=== PATIENT | female | born 2000 | race Asian ===

== ENCOUNTER → 2018-07-11 | Outpatient (CLI) | payer BC | END | disposition home or self-care (01) | LOC: US 08:30 | PROVIDERS: ATTEND Family Medicine | DX: R22.9 Localized swelling, mass and lump, unspecified (principal) | CPT/HCPCS: 76881 ==

== ENCOUNTER → 2018-08-15 | Outpatient (CLI) | payer BC | END | disposition home or self-care (01) | LOC: US 07:47 | PROVIDERS: ATTEND Family Medicine | DX: N63.22 Unspecified lump in the left breast, upper inner quadrant (principal) | CPT/HCPCS: 76642 ==

== ENCOUNTER → 2018-08-29 | Day surgery (SDC) | payer BC ==
[~2018-08-29] MED LIST: LIDOCAINE HCL/EPINEPHRINE 1%-EPI 1:100,000 20 ML VIAL ONE; SODIUM BICARBONATE 4% (2.4MEQ) 5ML VIAL IV ONE
== END | disposition home or self-care (01) ==
LOC: RAD 09:17
PROVIDERS: ATTEND Family Medicine
DX: D24.2 Benign neoplasm of left breast (principal); Z79.899 Other long term (current) drug therapy; D14.0 Benign neoplasm of middle ear, nasal cavity and accessory sinuses
CPT/HCPCS: 19083; 88305; J3490

== ENCOUNTER → 2019-06-22 | Outpatient (CLI) | payer BC | END | disposition home or self-care (01) | LOC: US 07:25 | PROVIDERS: ATTEND Family Medicine | DX: N60.02 Solitary cyst of left breast (principal) | CPT/HCPCS: 76641 ==

== ENCOUNTER → 2020-05-12 | Outpatient (CLI) | payer BC ==
[2020-05-12 12:04] LABS: BASOPHILS % 0.5 % (0.0-2.0); HEMATOCRIT. 39.8 % (36.0-48.0); HEMOGLOBIN. 13.7 g/dL (12.0-16.0); LYMPHOCYTES % 25.5 % (20.0-50.0); MEAN CORPUSCULAR HEMOGLOBIN 30.6 pg (28.0-32.0); MEAN CORPUSCULAR VOLUME 88.6 fL (81.0-99.0); MEAN PLATELET VOLUME 7.5 fl (7.4-10.4); MONOCYTES % 5.8 % (2.0-8.0); NEUTROPHILS % 67.2 % (40.0-76.0); PLATELET 288 x1000/uL (130-400); RED CELL DISTRIBUTION WIDTH 13.1 % (11.6-14.6)
[2020-05-12 12:13] LABS: CHLORIDE 110 mEq/L (98-107)
[2020-05-12 12:22] LABS: T4 FREE 1.06 ng/dL (0.76-1.46)
[2020-05-12 12:30] LABS: CLARITY URINE CLOUDY (CLEAR); COLOR URINE YELLOW (YELLOW); KETONES URINE TRACE (NEGATIVE); LEUKOCYTE ESTERASE URINE TRACE (NEGATIVE); NITRITE URINE NEGATIVE (NEGATIVE); OCCULT BLOOD URINE 2+ (NEGATIVE); PH URINE 5.5 (4.5-8.0); PROTEIN URINE NEGATIVE (NEGATIVE); SPECIFIC GRAVITY URINE 1.027 (1.005-1.030)
[2020-05-12 13:00] LABS: FOLIC ACID (FOLATE) SERUM 18.4 ng/mL (>5.38)
== END | disposition home or self-care (01) ==
LOC: LAB 11:08
PROVIDERS: ATTEND Family Medicine
DX: Z13.29 Encounter for screening for other suspected endocrine disorder (principal); R53.83 Other fatigue
CPT/HCPCS: 36415; 80053; 81003; 82306; 82607; 82746; 83036; 84439; 84443; 84481; 85025

== ENCOUNTER → 2020-05-26 | Outpatient (CLI) | payer BC | END | disposition home or self-care (01) | LOC: LAB 06:39 | PROVIDERS: ATTEND Family Medicine | DX: E78.5 Hyperlipidemia, unspecified (principal) | CPT/HCPCS: 36415; 80061 ==

== ENCOUNTER → 2023-10-01 | Outpatient (CLI) | payer BC ==
[2023-10-01 11:42] LABS: BASOPHILS % 0.4 % (0.0-2.0); EOSINOPHILS % 1.1 % (0.0-5.0); HEMATOCRIT. 43.2 % (36.0-48.0); HEMOGLOBIN. 14.4 g/dL (12.0-16.0); LYMPHOCYTES % 22.2 % (20.0-50.0); MEAN CORPUSCULAR HEMOGLOBIN 28.8 pg (28.0-32.0); MEAN CORPUSCULAR HGB CONC 33.2 g/dL (31.0-37.0); MEAN CORPUSCULAR VOLUME 86.6 fL (81.0-99.0); MEAN PLATELET VOLUME 7.1 fl (7.4-10.4); MONOCYTES % 4.3 % (2.0-8.0); PLATELET 294 x1000/uL (130-400); RED BLOOD CELL COUNT 4.99 mill/uL (4.2-5.4); RED CELL DISTRIBUTION WIDTH 13.4 % (11.6-14.6)
[2023-10-01 12:50] LABS: ALANINE AMINOTRANSFERASE 10 IU/L (10-49); ALBUMIN 4.2 g/dL (3.2-4.8); ASPARTATE AMINOTRANSFERASE 17 IU/L (<34); BILIRUBIN TOTAL 0.4 mg/dL (0.1-1.0); CALCIUM 9.5 mg/dL (8.7-10.4); CARBON DIOXIDE 26 mEq/L (21-32); CHLORIDE 105 mEq/L (98-107); CHOLESTEROL 202 mg/dL (<200); CREATININE 0.7 mg/dL (0.6-1.0); GLUCOSE 80 mg/dL (70-105); HDL CHOLESTEROL 74 mg/dL (>65); LDL CHOLESTEROL 121 mg/dL (5-100); POTASSIUM 4.3 mEq/L (3.5-5.1); PROTEIN TOTAL 7.3 g/dL (6.0-8.3); SODIUM 139 mEq/L (136-145); T4 FREE 1.28 ng/dL (0.89-1.76); THYROID STIMULATING HORMONE 1.68 uIU/mL (0.55-4.78); TRIGLYCERIDE 92 mg/dL (0-150); UREA NITROGEN BLOOD 9 mg/dL (9-23)
== END | disposition home or self-care (01) ==
LOC: LAB 11:20
PROVIDERS: ATTEND Family Medicine
DX: Z00.00 Encounter for general adult medical examination without abnormal findings (principal); Z11.3 Encounter for screening for infections with a predominantly sexual mode of transmission; E78.5 Hyperlipidemia, unspecified
CPT/HCPCS: 36415; 80053; 80061; 82306; 83036; 84439; 84443; 84481; 85025